=== PATIENT | male | born 1975 ===

== ENCOUNTER 2016-09-28 22:40 | Emergency (ER) | payer MEDICAID ==
[2016-09-28 23:20] LABS: BASO # 0.1 K/uL (0.0-0.2); BASO % 0.9 % (0.0-2.0); EOS % 0.3 % (0.0-4.0); HEMATOCRIT 41.7 % (35.0-51.0); LYMPH # 2.9 K/uL (1.0-4.3); LYMPH % 29.8 % (20.0-40.0); MEAN CELL VOLUME 89.6 fL (80.0-94.0); MEAN CORPUSCULAR HEMOGLOBIN 31.4 pg (27.0-31.0); MEAN PLATELET VOLUME 9.1 fL (7.2-11.7); MONO # 0.6 K/uL (0.0-0.8); MONO % 5.6 % (0.0-10.0); RED CELL DISTRIBUTION WIDTH 13.2 % (11.5-14.5); WHITE BLOOD COUNT 9.9 K/uL (4.8-10.8)
[2016-09-28 23:26] LABS: URINE BILIRUBIN NEGATIVE (NEGATIVE); URINE BLOOD NEGATIVE (NEGATIVE); URINE COLOR Straw (YELLOW); URINE GLUCOSE (UA) 1+ mg/dL (Normal); URINE KETONE NEGATIVE (NEGATIVE); URINE LEUKOCYTE ESTERASE NEG Leu/uL (Negative); URINE PROTEIN NEGATIVE (NEGATIVE); URINE UROBILINOGEN NORMAL mg/dL (0.2-1.0); WBC URINE 1 /hpf (0-5)
[2016-09-28 23:32] LABS: CHLORIDE 97 mmol/L (98-107); POTASSIUM 3.6 mmol/L (3.6-5.2); SODIUM 136 mmol/L (132-148)
[2016-09-28 23:34] LABS: ALB/GLOB RATIO 1.3 (1.0-2.1); ALKALINE PHOSPHATASE 95 U/L (38-126); ALT/SGPT 35 U/L (21-72); AST/SGOT 24 U/L (17-59); BILIRUBIN,TOTAL 0.7 mg/dL (0.2-1.3); BLOOD UREA NITROGEN 13 mg/dL (9-20); CARBON DIOXIDE 27 mmol/L (22-30); GFR AFRICAN-AMERICAN > 60; GLUCOSE,RANDOM 198 mg/dL (75-110); TOTAL PROTEIN 7.9 g/dL (6.3-8.3)
[2016-09-28 23:35] LABS: ALCOHOL SERUM < 10 mg/dl (0-10); CALCIUM 8.8 mg/dl (8.6-10.4)
--- NOTE | 2016-09-28 23:53 | C.PDOC ---
Time Seen by Provider: 09/28/16 23:03 Chief Complaint (Nursing): Chest Pain History Per: Patient Onset/Duration Of Symptoms: Hrs (3) Current Symptoms Are (Timing): Still Present Context: Other (after using Cocaine) Severity: Moderate Modifying Factors: Other Indicated Below Additional History Per: Prior Records Past Medical History Reviewed: Historical Data, Nursing Documentation, Vital Signs Vital Signs: Last Vital Signs Temp 99.1 F 09/28/16 22:55 Pulse 128 H 09/28/16 22:55 Resp 24 09/28/16 22:55 BP 137/93 H 09/29/16 00:08 Pulse Ox 100 09/29/16 00:24 - Medical History PMH: Diabetes, HTN Surgical History: No Surg Hx Family History: States: Unknown Family Hx - Social History Hx Tobacco Use: Yes Hx Alcohol Use: Yes Hx Substance Use: Yes (Cocaine) - Immunization History Hx Tetanus Toxoid Vaccination: No Hx Influenza Vaccination: No Hx Pneumococcal Vaccination: No Review Of Systems Except As Marked, All Systems Reviewed And Found Negative. Constitutional: Negative for: Fever, Weakness Eyes: Negative for: Vision Change Cardiovascular: Positive for: Chest Pain Respiratory: Negative for: Shortness of Breath, Hemoptysis Gastrointestinal: Negative for: Vomiting Musculoskeletal: Negative for: Neck Pain, Back Pain Skin: Negative for: Rash Neurological: Positive for: Numbness (right face and RUE). Negative for: Weakness, Change in Speech, Confusion, Seizures, Altered Mental Status, Headache Physical Exam - Physical Exam Appears: Non-toxic, No Acute Distress Skin: Normal Color, Warm, Dry, No Rash Head: Atraumatic, Normacephalic Eye(s): bilateral: PERRL, EOMI Neck: Normal ROM, Supple Cardiovascular: Rhythm Regular (tachycardia) Respiratory: Normal Breath Sounds, No Accessory Muscle Use Gastrointestinal/Abdominal: Soft, No Tenderness Back: No CVA Tenderness Extremity: Normal ROM, No Pedal Edema, No Calf Tenderness Neurological/Psych: Oriented x3, Normal Speech, Normal Cognition, No Cerebellar Signs, Normal Motor, No Normal Sensation (decreased in right face and RUE compared to left) ED Course And Treatment - Laboratory Results Result Diagrams: 09/28/16 23:15 09/28/16 23:15 Interpretation Of Abnormal: Positive for Cocaine. ECG: Interpreted By Me, Viewed By Me ECG Rhythm: Sinus Tachycardia, Nonspecific Changes Rate From EC O2 Sat by Pulse Oximetry: 100 Pulse Ox Interpretation: Normal - Radiology CXR: Interpreted by Me, Viewed By Me CXR Interpretation: Yes: No Acute Disease - CT Scan/US CT head Other Rad Studies (CT/US): Read By Radiologist, Radiology Report Reviewed CT/US Interpretation: No acute findings. Progress Note: Pt states he feels much better and wants to go home. I want to admit pt for observation due to cocaine chest pain, however his is not willing to stay and wants to leave right now. He insists on leaving AMA even after I explained to him that he could be having a heart attack or a stroke. Reassessment Condition: Improved Against Medical Advice - AMA Patient Left Against Medical Advice: The patient declines admission to the hospital and wishes to leave the Emergency Department. This action is against my medical advice. This decision was made with informed refusal. The patient was told that admission to the hospital is necessary. Explanation of the reasons why were discussed. The risks of leaving were explained to the patient and include, but are not limited to, worsening of known or currently unknown conditions, permanent disability and from undiagnosed or untreated conditions. The patient has the capacity to make this informed decision and understands my explanation of the current medical problem and risks of leaving. The patient voluntarily accepts these risks and signed an AMA form documenting our conversation. The patient was given the opportunity to ask questions and reconsider. The patient was encouraged to return to the Emergency Department at any time for further care. Progress - Interventions Interventions:: Observation - Medications Administered Intravenous: Other (Ativan) - Data Reviewed Data Reviewed: Lab, Diagnostic imaging, EKG, Old records - Patient Status Patient status: Mostly improved - Continuity of Care Discussed patient case with:: Patient, ED Nurse - Patient Plan Patient Plan: Observation, Telemetry Disposition Counseled Patient/Family Regarding: Studies Performed, Diagnosis, Need For Followup, Smoking Cessation - Disposition Referrals: Jytoi Diez MD [Staff Provider] - Disposition: AGAINST MEDICAL ADVICE Disposition Time: 00:23 Condition: GUARDED Additional Instructions: Avoid illicit drugs. Follow up with your doctor as soon as possible. Return to the ER if you change your mind or if you develop weakness, shortness of breath, worsening of symptoms or if you have any other concerns. Instructions: Cocaine Abuse (ED), Against Medical Advice (ED) - Clinical Impression Clinical Impression: Cocaine abuse, Chest pain, Numbness and tingling of right side of face, Numbness and tingling of right upper extremity, Left against medical advice
[2016-09-29 00:59] VITALS: BP 128/83; PULSE 100; RESP 16; TEMP 98.4; O2SAT 98
--- NOTE | 2016-09-29 07:38 | CT ---
PROCEDURE: CT HEAD WITHOUT CONTRAST. HISTORY: Right face/RUE numbness after using Cocaine COMPARISON: None available. TECHNIQUE: Axial computed tomography images were obtained through the head/brain without intravenous contrast. Radiation dose: Total exam DLP = 796 mGy-cm. This CT exam was performed using one or more of the following dose reduction techniques: Automated exposure control, adjustment of the mA and/or kV according to patient size, and/or use of iterative reconstruction technique. FINDINGS: HEMORRHAGE: No intracranial hemorrhage. BRAIN: Question mild brain volume loss. No chronic microvascular ischemic changes. VENTRICLES: Unremarkable. No hydrocephalus. CALVARIUM: Unremarkable. PARANASAL SINUSES: Unremarkable as visualized. No significant inflammatory changes. MASTOID AIR CELLS: Unremarkable as visualized. No inflammatory changes. OTHER FINDINGS: None. IMPRESSION: No acute intracranial abnormality. If focal neurologic deficit persists, consider MRI. These findings were preliminarily reported at 12:13 a.m. by doctor Juan Pablo Soto from [facility] on 09/29/2016.
--- NOTE | 2016-09-29 08:20 | RAD ---
PROCEDURE: CHEST RADIOGRAPH, 1 VIEW. Portable study 23:15. HISTORY: chest pain COMPARISON: None available. FINDINGS: LUNGS: Clear. PLEURA: No pneumothorax or pleural fluid seen. CARDIOVASCULAR: Normal. OSSEOUS STRUCTURES: No significant abnormalities. VISUALIZED UPPER ABDOMEN: Normal. OTHER FINDINGS: None. IMPRESSION: No active disease. No acute/significant interval changes.
--- NOTE | 2016-09-30 01:54 | CARD ---
APPROVED REPORT EKG Measurement Heart [id number] <Conclusion> Sinus tachycardia Left anterior fascicular block Abnormal ECG
== END 2016-09-29 01:09 | disposition left against medical advice (07) ==
LOC: C.ER 22:40
DX: F14.10 Cocaine abuse, uncomplicated (principal); R07.89 Other chest pain; R20.0 Anesthesia of skin
CPT/HCPCS: 70450; 71010; 80053; 80320; 80324; 80345; 80346; 80349; 80353; 80358; 80361; 81001; 82948; 83690; 83992; 84484; 85025; 85610; 85730; 93005; 96374; 99285; J2060